=== PATIENT | female | born 1980 | race African-American/Black ===

== ENCOUNTER 2017-06-07 10:56 | Emergency (ER) | payer BC ==
[~2017-06-07] VITALS: Ht 167.6 cm; Wt 104.5 kg
[2017-06-07 10:58] VITALS: BP 173/92; PULSE 85; RESP 17; TEMP 98.5; O2SAT 98
--- NOTE | 2017-06-07 11:23 | PD ---
Physical Exam Time Seen by Provider: 11:21 Narrative 37 y/o female here with dysuria and back pain. Vital signs reviewed. Seen at triage desk. Awaiting bed placement. Data Data Last Documented VS Vital Signs Date Time Temp Pulse Resp B/P Pulse Ox O2 Delivery O2 Flow Rate FiO2 06/07/17 10:58 98.5 85 17 173/92 98 MDM Medical Record Reviewed: Yes Supervised Visit with DINORAH: No Ricardo Rodriguez Jun 07, 2017 11:23
[2017-06-07] MEDS ORDERED: CEPH-460 PO (11:53)
[2017-06-07] MEDS ORDERED: PHEN0.4T PO (11:53)
--- NOTE | 2017-06-07 11:54 | PD ---
HPI Chief Complaint: Complaint Time Seen by Provider: 11:50 Travel History International Travel<30 days: No Contact w/Intl Traveler<30days: No Traveled to known affect area: No History of Present Illness HPI 37-year-old female presents to the emergency Department with complaint of dysuria since Tuesday with onset of lower back pain this morning. Reports urgency, frequency, hesitancy. Denies hematuria. Denies abnormal vaginal discharge, odor, itch. Denies abdominal pain, nausea, vomiting. Denies fever. Reports feeling chills. Has not taken any medications or tried any treatments to alleviate her symptoms. Symptoms are mild in severity. Allergies black pepper and red dyes. Has no other medical complaints. No other modifying factors or associated signs and symptoms. PFSH Past Medical History Medical History: Denies Significant Hx ?: Not LMP: 04/2017 Past Surgical History Surgical History: No Previous Surgery Social History Alcohol Use: No Tobacco Use: No Substance Use: No Allergies-Medications (Allergen,Severity, Reaction): Coded Allergies: Black Pepper (Verified Allergy, Severe, ESOPHAGUS SPASMS, 06/07/17) Red Dyes - Various (Verified Allergy, Severe, HIVES, 06/07/17) Reported Meds & Prescriptions Reported Meds & Active Scripts Active Deltasone (Prednisone) 20 Mg Tab 40 Mg PO DAILY 4 Days start 06/08/2017 Pyridium (Phenazopyridine HCl) 100 Mg Tab 100 Mg PO Q8H PRN 3 Days Keflex (Cephalexin) 500 Mg Cap 500 Mg PO Q12H 7 Days Review of Systems Except as stated in HPI: all other systems reviewed are Neg Physical Exam Narrative GENERAL: Well-nourished, well-developed female patient, in no acute distress; afebrile, nontoxic-appearing SKIN: Warm and dry. No rash. HEAD: Atraumatic. Normocephalic. EYES: Pupils equal and round. No scleral icterus. No injection or drainage. ENT: Mucosa pink and moist. NECK: Trachea midline. CARDIOVASCULAR: Regular rate. RESPIRATORY: No accessory muscle use. GASTROINTESTINAL: Abdomen soft, non-tender, nondistended. Hepatic and splenic margins not palpable. Bowel sounds are active 4 quadrants. Bladder nontender and nondistended. MUSCULOSKELETAL: No obvious deformities. No clubbing. No cyanosis. No edema. BACK: No CVA tenderness NEUROLOGICAL: Awake and alert. Oriented 3. No obvious cranial nerve deficits. Motor grossly within normal limits. Normal speech. Moves all extremities. 5/5 strength to all extremities. PSYCHIATRIC: Appropriate mood and affect; insight and judgment normal. Data Data Last Documented VS Vital Signs Date Time Temp Pulse Resp B/P Pulse Ox O2 Delivery O2 Flow Rate FiO2 06/07/17 10:58 98.5 85 17 173/92 98 Orders Urinalysis - C+S If Indicated (06/07/17 11:24) Ed Urine Pregnancytest Poc (06/07/17 11:24) Prednisone (Deltasone) (06/07/17 13:00) Labs Laboratory Tests Test 06/07/17 11:33 Urine Color YELLOW Urine Turbidity HAZY Urine pH 5.5 Urine Specific [place] 1.010 Urine Protein NEG mg/dL Urine Glucose (UA) NEG mg/dL Urine Ketones NEG mg/dL Urine Occult Blood NEG Urine Nitrite NEG Urine Bilirubin NEG Urine Urobilinogen LESS THAN 2.0 MG/DL Urine Leukocyte Esterase SMALL Urine RBC LESS THAN 1 /hpf Urine WBC 1 /hpf Urine Squamous Epithelial 2 /hpf Cells Urine Bacteria RARE /hpf Microscopic Urinalysis Comment CULT NOT INDICATED MDM Medical Decision Making Medical Screen Exam Complete: Yes Emergency Medical Condition: Yes Medical Record Reviewed: Yes Differential Diagnosis Cystitis, urinary tract infection, pyelonephritis Narrative Course 37-year-old female with dysuria. Urinalysis and UPT ordered in triage. UPT is negative. 1250: Patient has history of lupus and says that she feels her lupus flaring up. She says she's been feeling it for the last couple days that is getting really bad right now. She is requesting 5 days of prednisone. Prednisone administered in the ER. Prescription will be provided for home for the next 4 days. 1306: Urinalysis with no signs of infection. I'll treat the patient for possible cystitis secondary to urinary complaints. Keflex, Pyridium prescribed for home. Deltasone prescription provided for home for patient complaining of lupus flare. Instructed patient to follow up with primary care provider. Patient verbalizes understanding and agreement with treatment plan. Patient is medically cleared and stable for discharge. Discussed reasons to return to the emergency department. Patient agrees with treatment plan. The patients vital signs are stable and the patient is stable for outpatient follow-up and treatment. Patient discharged home, stable and in no acute distress. Diagnosis Primary Impression: Cystitis Referrals: Primary Care Physician Patient Instructions: General Instructions, Interstitial Cystitis (ED), Urinary Tract Infection in Women (ED) Departure Forms: School Release, Return to School Date: Jun 08, 2017 Tests/Procedures Additional Instructions: Take antibiotics as prescribed and complete full course Take Pyridium for bladder spasms: Pyridium will turn your urine bright orange Drink plenty of fluids Maintain good personal hygiene Follow-up with primary care provider Return to the emergency department immediately with worsening of symptoms Med/Other Pt SpecificInfo: Prescription(s) given Scripts Prednisone (Deltasone)20 Mg Tab40 Mg PO DAILY 4 Days Ref 0 start 06/08/2017 Prov:Arabella Alvarez 06/07/17 Phenazopyridine (Pyridium)100 Mg [id number] Mg PO Q8H PRN (DYSURIA) 3 Days Ref 0 Prov:Arabella Alvarez 06/07/17 Cephalexin (Keflex)500 Mg [id number] Mg PO Q12H 7 Days Ref 0 Prov:Arabella Alvarez 06/07/17 Disposition: 01 DISCHARGE HOME Condition: Stable Arabella Alvarez Jun 07, 2017 11:54
[2017-06-07] MEDS ORDERED: PRED-503 PO (12:57)
[2017-06-07] MEDS ORDERED: predniSONE 20 MG TAB PO ONE (13:00)
[2017-06-07 13:01] LABS: BACTERIA, URINE RARE /hpf; BLOOD, URINE NEG (NEG); COMMENT (UR) CULT NOT INDICATED; CULTURE IF INDICATED CULT NOT INDICATED; GLUCOSE,URINE NEG (NEG); KETONE, URINE NEG (NEG); NITRITE,URINE NEG (NEG); PH, URINE 5.5 (5.0-8.5); SQUAMOUS EPITHELIAL CELL URINE 2 /hpf (0-5); URINE COLOR YELLOW (YELLW/STRAW)
== END 2017-06-07 13:33 | disposition home or self-care (01) ==
LOC: NEPK 10:56
DX: N30.90 Cystitis, unspecified without hematuria (principal); M32.9 Systemic lupus erythematosus, unspecified; Z79.899 Other long term (current) drug therapy
CPT/HCPCS: 81001; 84703; 99284; J7512

== ENCOUNTER 2017-09-19 18:24 | Emergency (ER) | payer SELFPAY ==
[~2017-09-19] VITALS: Ht 167.6 cm; Wt 100.0 kg
[~2017-09-19 18:24] MED LIST: CEPH-460 PO; PHEN0.4T PO; PRED-503 PO
[2017-09-19 18:26] VITALS: BP 191/93; PULSE 84; RESP 18; TEMP 98.4; O2SAT 100
--- NOTE | 2017-09-19 18:53 | PD ---
HPI Chief Complaint: Allergic/Adverse Reaction Time Seen by Provider: 18:43 Travel History International Travel<30 days: No Contact w/Intl Traveler<30days: No Traveled to known affect area: No History of Present Illness HPI 37-year-old Afro-British female presents the emergency department with sudden onset esophageal ain't, burning, and spasm. Patient has had this in the past. She states it's a reaction to black pepper which she ate and some food but did not realize. Patient has history of this in the past. Patient has taken GI cocktail in the past with good results as well as Carafate and H2 blockers in the past. She is having no difficulty breathing. She is able to drink water currently. Her pain is described as a burning spasm, with 8 out of 10 pain currently. PFSH Past Medical History Arthritis: Yes Autoimmune Disease: Yes (LUPUS) Hypertension: Yes Immune Disorder: Yes Medical other: Yes (GLAUCOMA) Tetanus Vaccination: < 5 Years ?: Not LMP: 09/14/17 Social History Alcohol Use: No Tobacco Use: No Substance Use: No Allergies-Medications (Allergen,Severity, Reaction): Coded Allergies: black pepper (Unverified Allergy, Severe, ESOPHAGUS SPASMS, 09/19/17) red dye (Unverified Allergy, Severe, HIVES, 09/19/17) Reported Meds & Prescriptions Reported Meds & Active Scripts Active Deltasone (Prednisone) 20 Mg Tab 40 Mg PO DAILY 4 Days start 06/08/2017 Pyridium (Phenazopyridine HCl) 100 Mg Tab 100 Mg PO Q8H PRN 3 Days Keflex (Cephalexin) 500 Mg Cap 500 Mg PO Q12H 7 Days Review of Systems Except as stated in HPI: all other systems reviewed are Neg General / Constitutional: No: Fever Eyes: No: Visual changes HENT: No: Headaches Cardiovascular: No: Chest Pain or Discomfort Respiratory: No: Shortness of Breath Gastrointestinal: Positive: Abdominal Pain (see history of present illness) Genitourinary: No: Dysuria Musculoskeletal: No: Pain Skin: No Rash Neurologic: No: Weakness Psychiatric: No: Depression Endocrine: No: Polydipsia Hematologic/Lymphatic: No: Easy Bruising Physical Exam Narrative GENERAL: Patient appears mild to moderate distress. She is able to speak in full senses. She is drinking water. SKIN: Warm and dry. Normal color. Normal turgor HEAD: Atraumatic. Normocephalic. EYES: Pupils equal and round. No scleral icterus. No injection or drainage. ENT: No nasal bleeding or discharge. Mucous membranes pink and moist. Pharynx appears normal. Tongue is midline. Airway is patent. NECK: Trachea midline. Supple nontender. CARDIOVASCULAR: Regular rate and rhythm. RESPIRATORY: No accessory muscle use. Clear to auscultation. Breath sounds equal bilaterally. GASTROINTESTINAL: Abdomen soft, moderate epigastric tenderness, nondistended. Hepatic and splenic margins not palpable. MUSCULOSKELETAL: Extremities without clubbing, cyanosis, or edema. No obvious deformities. NEUROLOGICAL: Awake and alert. No obvious cranial nerve deficits. Motor grossly within normal limits. Five out of 5 muscle strength in the arms and legs. Normal speech. PSYCHIATRIC: Appropriate mood and affect; insight and judgment normal. Data Data Last Documented VS Vital Signs Date Time Temp Pulse Resp B/P (MAP) Pulse Ox O2 Delivery O2 Flow Rate FiO2 09/19/17 18:26 98.4 84 18 191/93 (125) 100 Room Air Orders Orders Al-Mag Hy-Si 40-40-4 Mg/Ml Liq (Mag-Al P (09/19/17 19:00) Lidocaine 2% Viscous (Xylocaine 2% Visco (09/19/17 19:00) Ranitidine Liq (Zantac Liq) (09/19/17 19:00) Sucralfate Liq (Carafate Liq) (09/19/17 19:00) MDM Medical Decision Making Medical Screen Exam Complete: Yes Emergency Medical Condition: Yes Medical Record Reviewed: Yes Differential Diagnosis Acute esophagitis. Esophageal spasm. Food reaction. Narrative Course Patient is medically stable at time of exam. GI cocktail is ordered by mouth. 150 mg ranitidine liquid is ordered by mouth. 1 g Carafate liquid ordered by mouth. Diagnosis Primary Impression: Acute esophagitis Referrals: [employer] Patient Instructions: Allergic Esophagitis (ED), General Instructions Med/Other Pt SpecificInfo: Prescription(s) given Disposition: 01 DISCHARGE HOME Condition: Stable Josiah Strickland Sep 19, 2017 18:53
[2017-09-19] MEDS ORDERED: PANT40TA3 PO (18:54)
[2017-09-19] MEDS ORDERED: CARA1TAB6 PO (18:54)
[2017-09-19] MEDS ORDERED: RANI150T PO (18:54)
[2017-09-19] MEDS ORDERED: RANITIDINE HCL SYRUP 150 MG/10 ML UDC PO ONE (19:00)
[2017-09-19] MEDS ORDERED: LIDOCAINE VISCOUS 2% SOLN 15 ML UDC PO ONE (19:00)
[2017-09-19] MEDS ORDERED: SUCRALFATE 1 GM/10 ML CUP PO ONE (19:00)
[2017-09-19] MEDS ORDERED: ALUMINUM/MAGNESIUM/SIMETH 30 ML CUP PO ONE (19:00)
== END 2017-09-19 19:39 | disposition home or self-care (01) ==
LOC: NEPK 18:24
DX: K20.9 Esophagitis, unspecified (principal); M19.90 Unspecified osteoarthritis, unspecified site; M32.9 Systemic lupus erythematosus, unspecified; I10 Essential (primary) hypertension; H40.9 Unspecified glaucoma; Z79.899 Other long term (current) drug therapy
CPT/HCPCS: 99284